=== PATIENT | male | born 1940 | race Caucasian/White ===

== ENCOUNTER 2020-12-04 07:56 | Day surgery (SDC) | payer OTHER, MEDICARE ==
[2020-12-02 10:37] VITALS: BMI 25.8
[2020-12-04 08:12] VITALS: TEMP 97.7
[2020-12-04] MEDS ORDERED: LIDOCAINE HCL/PF 2% SDV 5ML VIAL ONE (08:14)
[2020-12-04] MEDS ORDERED: PROPOFOL 20 ML ONE ×2 (08:15)
[2020-12-04 09:57] VITALS: BP 132/80; PULSE 78
== END 2020-12-04 09:55 | disposition home or self-care (01) ==
LOC: FASU-ENDO 07:56
PROVIDERS: ATTEND Internal Medicine Gastroenterology
PROC: 3E0H8KZ Introduction of Other Diagnostic Substance into Lower GI, Via Natural or Artificial Opening Endoscopic (ICD-10-PCS; 2020-12-04)
PROC: 0DBK8ZX Excision of Ascending Colon, Via Natural or Artificial Opening Endoscopic, Diagnostic (ICD-10-PCS; principal; 2020-12-04 08:51)
DX: C18.2 Malignant neoplasm of ascending colon (principal); K57.30 Diverticulosis of large intestine without perforation or abscess without bleeding; Z86.010 Personal history of colon polyps
CPT/HCPCS: 82962; 88305-TC

== ENCOUNTER 2021-07-20 09:27 | Emergency (ER) | payer OTHER, MEDICARE ==
[2021-07-20 09:41] VITALS: BMI 25.0
[2021-07-20] MEDS ORDERED: ACETAMINOPHEN 1000 MG/100 ML VIAL (NON FORMULARY) IVPB ONE (10:21)
[2021-07-20] MEDS ORDERED: LACTATED RINGERS SOLUTION 1000 ML INFUS.BAG IV ONE (10:21)
[2021-07-20 10:27] LABS: ALK PHOS 35 U/L (45-117); ANION GAP 16 MMOL/L (8-16); BILIRUBIN,TOTAL 0.5 mg/dl (0.2-1); CALCIUM 9.6 mg/dl (8.5-10); CHLORIDE 92 mmol/L (98-107); CO2 26 mmol/L (21-32); CREATININE 1.1 mg/dl (0.55-1.3); GLUCOSE,RANDOM 199 mg/dl (74-106); SGOT/AST 24 U/L (15-37); SGPT/ALT 29 U/L (13-61); SODIUM 134 mmol/L (136-145); TOT PROT 7.5 g/dl (6.4-8.2)
[2021-07-20] MEDS ORDERED: ACETAMINOPHEN INJECTION 100 ML IVPB ONE (10:31)
[2021-07-20 12:29] LABS: BASO % 0.6 % (0-2.0); EOS % 2.9 % (0-4.5); HEMATOCRIT 45.9 % (35.4-49); HEMOGLOBIN 15.4 GM/dL (11.7-16.9); LYMPH % 13.5 % (8-40); MCH 26.2 pg (25.7-33.7); MCHC 33.5 g/dl (32.0-35.9); MEAN CELL VOLUME 78.3 fl (80-96); MEAN PLT VOLUME 8.8 fl (7.5-11.1); PLATELET COUNT 289 10^3/uL (134-434); RBC 5.87 M/mm3 (4.00-5.60); RDW 15.3 % (11.9-15.9); WHITE BLOOD COUNT 9.4 K/mm3 (4.0-10.0)
[2021-07-20 12:33] LABS: LIPASE 99 U/L (73-393)
[2021-07-20] MEDS ORDERED: LIDOCAINE HCL 2% JELLY (5 ML/TUBE) ONE (15:21)
[2021-07-20] MEDS ORDERED: LACTATED RINGERS SOLUTION 1,000 ML/1,000 ML INFUS.BAG IV SCH (18:45)
[2021-07-20 19:15] VITALS: BP 140/80; PULSE 80; TEMP 98.5
== END 2021-07-20 20:40 | disposition short-term general hospital (02) ==
LOC: FER 09:27
PROC: 3E0333Z Introduction of Anti-inflammatory into Peripheral Vein, Percutaneous Approach (ICD-10-PCS; principal; 2021-07-20)
DX: K56.600 Partial intestinal obstruction, unspecified as to cause (principal)
CPT/HCPCS: 36415; 71045-TC-FY; 74160-TC; 80053; 81003; 82962; 83690; 84484; 85025; 93005; 99284-25; C9803; J0131; U0003; U0005

== ENCOUNTER 2022-05-10 09:29 | Day surgery (SDC) | payer OTHER, MEDICARE ==
[2022-05-06 10:19] VITALS: BMI 24.3
[2022-05-10] MEDS ORDERED: PROPOFOL 20 ML ONE ×2 (10:47)
[2022-05-10 11:17] VITALS: TEMP 97.7
[2022-05-10 11:30] VITALS: BP 112/68; PULSE 67; RESP 16
== END 2022-05-10 11:39 | disposition home or self-care (01) ==
LOC: FASU-ENDO 09:29
PROVIDERS: ATTEND Internal Medicine Gastroenterology
PROC: 0DJD8ZZ Inspection of Lower Intestinal Tract, Via Natural or Artificial Opening Endoscopic (ICD-10-PCS; principal; 2022-05-10 10:49)
DX: Z12.11 Encounter for screening for malignant neoplasm of colon (principal); Z85.038 Personal history of other malignant neoplasm of large intestine; Z98.0 Intestinal bypass and anastomosis status
CPT/HCPCS: 82962

== ENCOUNTER 2022-12-27 10:29 | Day surgery (SDC) | payer OTHER, MEDICARE ==
[2022-12-23 13:29] VITALS: BMI 24.3
[2022-12-27 10:55] VITALS: RESP 20
[2022-12-27 12:02] VITALS: TEMP 97.6
[2022-12-27 12:55] VITALS: BP 142/64; PULSE 62
== END 2022-12-27 12:30 | disposition home or self-care (01) ==
LOC: FASU-ENDO 10:29
PROVIDERS: ATTEND Internal Medicine Gastroenterology
PROC: 0DB68ZX Excision of Stomach, Via Natural or Artificial Opening Endoscopic, Diagnostic (ICD-10-PCS; 2022-12-27)
PROC: 0DB98ZX Excision of Duodenum, Via Natural or Artificial Opening Endoscopic, Diagnostic (ICD-10-PCS; principal; 2022-12-27 11:34)
DX: K29.50 Unspecified chronic gastritis without bleeding (principal); B96.81 Helicobacter pylori [H. pylori] as the cause of diseases classified elsewhere; R11.2 Nausea with vomiting, unspecified
CPT/HCPCS: 82962; 88305-TC; 88342-TC